=== PATIENT | male | born 1980 | race African-American/Black ===

== ENCOUNTER 2022-08-25 08:17 | Emergency (ER) | payer SELFPAY ==
[~2022-08-25] VITALS: Ht 180.3 cm; Wt 123.0 kg
[2022-08-25 08:22] VITALS: BP 157/86
[2022-08-25 08:30] VITALS: BP 137/80
[2022-08-25] MEDS ORDERED: TRAMADOL HYDROC50 M1 PO (09:35)
[2022-08-25] MEDS ORDERED: FLEXERIL5 M1 PO (09:35)
[2022-08-25] MEDS ORDERED: NAPROXEN500 MG PO (09:35)
[2022-08-25 09:52] VITALS: BP 137/80
== END 2022-08-25 10:11 | disposition home or self-care (01) | DRG 605 ==
LOC: ED 08:17
DX: S20.211A Contusion of right front wall of thorax, initial encounter (principal); V43.52XA Car driver injured in collision with other type car in traffic accident, initial encounter